=== PATIENT | female | born 1955 | race Caucasian/White ===

== ENCOUNTER → 2016-09-28 | Outpatient (CLI) | payer OTHER ==
[~2016-09-28] MED LIST: ALBUTEROL0.83 MG/ML IH; ALBUTEROL17 GM; ALENDRONATE SOD70 MG PO; ALLEGRA PO; AMBIEN; AMBIEN PO; AMITIZA; AMITRIPTYLINE H50 MG; B; CHANTIX; DARVOCET-N 1001 TAB; ESTRATEST TABLE1 TAB; FEMARA2.5 MG PO; FLONASE16 GM; FLOVENT DI50 MCG/DIS IH; HYDROCODON-ACE1 EAC1 PO; HYDROCODONE; IMITREX PO; KCL; LYRICA; LYRICA PO; MAGNESIUM500 MG; MAGNESIUM500 MG PO; MOVANTIK12.5 MG; MUCINEX; MULTI-DAY VITA1 EACH; PERCOCET 10/3251 TAB PO; PHENERGAN W/CO120 ML; PHENERGAN W/CO120 ML PO; PLAQUENIL200 MG; PLAQUENIL200 MG PO; PLAVIX; PREDNISONE PO; PREVACID PO; PROTONIX; ROBAXIN PO; SEROQUEL PO; SINGULAIR PO; SKELAXIN; SKELAXIN PO; SPIRIVA18 MCG; TOPROL XL; TOPROL XL PO; TRIGLIDE160 M1 PO; TRIGLIDE50 MG; VESICARE; VIT B12 PO; ZITHROMAX PO; ZOFRAN ODT4 MG PO; ZYLOPRIM; ZYRTEC PO; [UNRECOGNIZED DRUG - CODE] PO
[2016-09-28 11:35] LABS: BASOPHIL# 0.1 X10e3 (0-0.3); BASOPHIL% 0.9 % (0-2.5); EOSINOPHIL# 0.4 X10e3 (0-0.7); EOSINOPHIL% 3.7 % (0.0-7.0); HEMATOCRIT 42.7 % (35.0-45.0); HEMOGLOBIN 14.1 gm/dL (12.0-16.0); LYMPHOCYTE% 20.1 % (17.0-45.0); MEAN CELL VOLUME 86.7 FL (83-96); MEAN CORPUSCULAR HEMOGLOBIN 28.7 PG (28-34); MEAN PLATELET VOLUME 8.8 FL (6.5-11.5); MONOCYTE# 1.5 X10e3 (0-1.0); MONOCYTE% 14.3 % (3.0-12.0); NEUTROPHIL# 6.2 X10e3 (1.5-7.1); PLATELET COUNT 254 X10e3 (140-420); RED BLOOD COUNT 4.92 X10e (3.90-5.30); RED CELL DISTRIBUTION WIDTH 14.1 % (11.0-15.5); WHITE BLOOD COUNT 10.1 X10e3 (4.0-10.5)
[2016-09-28 11:37] LABS: DIFF IND NO
[2016-09-28 12:00] LABS: ALBUMIN SERUM 3.7 g/dL (3.5-5.0); BILIRUBIN,TOTAL 0.2 mg/dL (0.2-2.0); GLOM FILT RATE Estimated 61.2 mL/min (>60); POTASSIUM 4.1 mmol/L (3.5-5.1); PROTEIN TOTAL SERUM 6.7 g/dL (6.0-8.3)
[2016-09-28 12:28] LABS: URINE APPEARANCE CLEAR; URINE BILIRUBIN NEG (NEG); URINE BLOOD NEG (NEG); URINE COLOR YELLOW; URINE GLUCOSE NEG (NORM); URINE KETONE NEG (NEG); URINE LEUKOCYTE ESTERASE TRACE (NEG); URINE NITRATE NEG (NEG); URINE PROTEIN NEG (NEG); URINE UROBILINOGEN 0.2 MG/DL (NORM)
[2016-09-28 12:32] LABS: MICRO INDICATED? YES
[2016-09-28 12:42] LABS: URINE BACTERIA 1+ (NEG); URINE HYALINE CAST 0-2 /[HPF]; URINE RBC 0-2 /[HPF] (0-2); URINE SQUAMOUS EPITHELIAL CELL FEW /[HPF]
[2016-09-28 12:43] LABS: URINE GRANULAR CAST 0-2 /[HPF]; URINE MUCUS PRESENT
== END | disposition home or self-care (01) ==
LOC: SLAB 11:03
PROVIDERS: Internal Medicine Nephrology
DX: N18.3 Chronic kidney disease, stage 3 (moderate) (principal); E55.9 Vitamin D deficiency, unspecified
CPT/HCPCS: 36415; 80053; 81003; 82306; 85025

== ENCOUNTER 2016-12-06 12:36 | Emergency (ER) | payer OTHER ==
[~2016-12-06] VITALS: Ht 162.6 cm; Wt 86.2 kg
--- NOTE | ~2016-12-06 | CR252 ---
[facility] [place]. [facility] A Service of [facility] & [facility] RADIOLOGY TEXT RESULTS PATIENT: CINDY MEREDITH LOCATION: SED : 57 UNIT #: [id number] AGE: [address]: Jennifer Conner SEX: F ORDER DR: [id number] [address] [address] [id number] E MR#: [id number] Acc #: [id number] NAME: CINDY MEREDITH : 1955 SEX: F STUDY DATE/TIME: 12/06/2016 13:30 UNIT: SED ROOM: STUDY DESCRIPTION: CR Tibia and Fibula 2 Views Lt Attending Physician: Jennifer Conner M.D. Ordering Physician: Jennifer Conner M.D. Primary Care Physician: Pedro Leon M.D. MEDICAL IMAGING REPORT This report is preliminary unless electronic signature is present. EXAM Left tib-fib 12/06 INDICATIONS Leg pain and laceration after fall on gravel today. FINDINGS AP and lateral views of the tibia and fibula were obtained. No fracture or malalignment is seen. There is soft tissue injury over the anterior abad. No radiopaque foreign body. IMPRESSION No fracture or radiopaque foreign body. Dictated by... Adal Guerrero Jr., M.D. THIS IS AN ELECTRONICALLY VERIFIED REPORT Adal Guerrero Jr., M.D. at 12/07/2016 4:38 PM HIMAK/tate TD: 12/07/2016 07:36 JOB #: [id number] MEDICAL IMAGING REPORT Page 1 of 1
--- NOTE | ~2016-12-06 | CR172 ---
[facility]. [facility] A Service of [facility] & [facility] RADIOLOGY TEXT RESULTS PATIENT: CINDY MEREDITH LOCATION: SED : 57 UNIT #: [id number] AGE: [address]: Jennifer Conner SEX: F ORDER DR: [id number] [address] [address] [id number] E MR#: [id number] Acc #: [id number] NAME: CINDY MEREDITH : 1955 SEX: F STUDY DATE/TIME: 12/06/2016 13:30 UNIT: SED ROOM: STUDY DESCRIPTION: CR Knee 3 Views Lt Attending Physician: Jennifer Conner M.D. Ordering Physician: Jennifer Conner M.D. Primary Care Physician: Pedro Leon M.D. MEDICAL IMAGING REPORT This report is preliminary unless electronic signature is present. EXAM Left knee 12/06/2016 HISTORY 61-year-old female with left knee pain, status post fall today. COMPARISON None. FINDINGS Three views of the left knee demonstrate no acute fracture or dislocation. No joint effusion. Joint spaces are normally maintained. Soft tissues are unremarkable. No radiopaque foreign bodies. IMPRESSION Unremarkable left knee. Dictated by... Dangelo Carr M.D. THIS IS AN ELECTRONICALLY VERIFIED REPORT Dangelo Carr M.D. at 12/07/2016 10:49 AM KARIN/tate TD: 12/07/2016 07:37 JOB #: [id number] MEDICAL IMAGING REPORT Page 1 of 1
--- NOTE | ~2016-12-06 | CR21 ---
[facility]. [facility] A Service of [facility] & [facility] RADIOLOGY TEXT RESULTS PATIENT: CINDY MEREDITH LOCATION: SED : 57 UNIT #: [id number] AGE: [address]: Jennifer Conner SEX: F ORDER DR: [id number] [address] [address] [id number] E MR#: [id number] Acc #: [id number] NAME: CINDY MEREDITH : 1955 SEX: F STUDY DATE/TIME: 12/06/2016 13:30 UNIT: SED ROOM: STUDY DESCRIPTION: CR Ankle Min 3 Views Rt Attending Physician: Jennifer Conner M.D. Ordering Physician: Jennifer Conner M.D. Primary Care Physician: Pedro Leon M.D. MEDICAL IMAGING REPORT This report is preliminary unless electronic signature is present. EXAM Right ankle, 12/06. INDICATIONS Ankle pain and laceration after a fall today on gravel. FINDINGS Three views of the right ankle were obtained. Well-corticated bone fragment adjacent to the medial malleolus suggests prior trauma. No acute fracture. The mortise is intact. The soft tissues are unremarkable. IMPRESSION Evidence of old trauma about the medial malleolus. No acute fracture or malalignment. Dictated by... Adal Guerrero Jr., M.D. THIS IS AN ELECTRONICALLY VERIFIED REPORT Adal Guerrero Jr., M.D. at 12/07/2016 4:38 PM ULI/toña TD: 12/07/2016 07:39 JOB #: [id number] MEDICAL IMAGING REPORT Page 1 of 1
[~2016-12-06 12:36] MED LIST changes: -AMITRIPTYLINE H50 MG; -KCL; -MOVANTIK12.5 MG; -MULTI-DAY VITA1 EACH; -PLAVIX; -SEROQUEL PO; -ZYLOPRIM
[2016-12-06] MEDS ORDERED: MOVANTIK12.5 MG (12:51)
[2016-12-06] MEDS ORDERED: MULTI-DAY VITA1 EACH (12:52)
[2016-12-06] MEDS ORDERED: SEROQUEL PO (12:53)
[2016-12-06] MEDS ORDERED: AMITRIPTYLINE H50 MG (12:54)
[2016-12-06] MEDS ORDERED: KCL (12:55)
[2016-12-06] MEDS ORDERED: ZYLOPRIM (12:55)
[2016-12-06] MEDS ORDERED: PLAVIX (12:56)
== END 2016-12-06 15:59 | disposition home or self-care (01) ==
LOC: SED 12:36
DX: S93.401A Sprain of unspecified ligament of right ankle, initial encounter (principal); S83.92XA Sprain of unspecified site of left knee, initial encounter; F17.210 Nicotine dependence, cigarettes, uncomplicated; Z23 Encounter for immunization; J44.9 Chronic obstructive pulmonary disease, unspecified; Z79.899 Other long term (current) drug therapy; W01.0XXA Fall on same level from slipping, tripping and stumbling without subsequent striking against object, initial encounter; Y92.009 Unspecified place in unspecified non-institutional (private) residence as the place of occurrence of the external cause
CPT/HCPCS: 29540; 73562; 73590; 73610; 90471; 90715; 99283